=== PATIENT | female | born 1940 | race Caucasian/White ===

== ENCOUNTER 2021-05-26 09:44 | Observation (INO) | payer MEDICARE ==
[2021-05-26 10:59] LABS: #Lymphocytes 0.6 thou/uL (1.20-3.40); #Monocytes 0.4 thou/uL (0.11-0.59); #Neutrophils 3.5 thou/uL (1.40-6.50); %Basophils 0.6 % (0.0-1.0); %Lymphocytes 13.3 % (21.0-51.0); %Monocytes 8.8 % (0.0-10.0); %Neutrophils 77.3 % (42.0-75.0); Hemoglobin 13.3 g/dL (12.0-16.0); Mean Corpuscular HGB CONC 32.4 g/dL (32.0-36.0); Mean Corpuscular Hemoglobin 28.4 pg (27.0-31.0); Mean Corpuscular Volume 87.8 fL (78.0-98.0); Platelet Count 175 thou/uL (130-400); RBC Distribution Width 14.3 % (11.5-14.5); Red Blood Cell (RBC) Count 4.68 mill/uL (4.20-5.40); White Blood Cell (WBC) Count 4.5 thou/uL (4.8-10.8)
[2021-05-26 11:10] LABS: ALT (SGPT) 25 U/L (8-55); AST (SGOT) 31 U/L (5-34); Albumin 3.5 g/dL (3.4-4.8); Alkaline Phosphatase 58 U/L (40-110); Anion Gap 13 mmol/L (10-20); BUN (Urea Nitrogen) 15 mg/dL (9.8-20.1); Bilirubin, Total 0.3 mg/dL (0.2-1.2); Calc. Creatinine Clearance 0 mL/min (70-130); Calcium 7.9 mg/dL (7.8-10.44); Carbon Dioxide 24 mmol/L (23-31); Chloride 103 mmol/L (98-107); Globulin 2.9 g/dL (2.4-3.5); Glucose 119 mg/dL (83-110); Potassium 3.9 mmol/L (3.5-5.1); Protein, Total 6.4 g/dL (5.8-8.1); Sodium 136 mmol/L (136-145)
[2021-05-26] MEDS ORDERED: cefTRIAXone\\ROCEPHIN 2 GM VIAL ONE (11:17)
[2021-05-26] MEDS ORDERED: Aspirin 325 MG TAB ONE (11:17)
[2021-05-26] MEDS ORDERED: Sodium Chloride 0.9% 100 ML ONE (11:18)
[2021-05-26] MEDS ORDERED: Azithromycin 500 MG VIAL ONE (12:09)
[2021-05-26 12:30] LABS: SARS-CoV-2 NAA Rapid Test DETECTED (NotDetected)
[2021-05-26] MEDS ORDERED: Dexamethasone 10 MG/ML VIAL ONE (14:34)
[2021-05-26] MEDS ORDERED: Albuterol 200 PUFF (6.7GM INHALER) INH PRN (15:24)
[2021-05-26] MEDS ORDERED: Ondansetron ODT 4 MG TAB SL PRN (15:30)
[2021-05-26] MEDS ORDERED: Acetaminophen 325 MG TAB PO PRN (15:30)
[2021-05-26] MEDS ORDERED: Ondansetron PF 4 MG/2 ML Vial IVP PRN (15:30)
[2021-05-26 16:14] VITALS: BMI 33.3
[2021-05-27 05:29] LABS: ALT (SGPT) 25 U/L (8-55); AST (SGOT) 32 U/L (5-34); Albumin 3.4 g/dL (3.4-4.8); Alkaline Phosphatase 53 U/L (40-110); Anion Gap 13 mmol/L (10-20); BUN (Urea Nitrogen) 15 mg/dL (9.8-20.1); Bilirubin, Total 0.3 mg/dL (0.2-1.2); Calc. Creatinine Clearance 115 mL/min (70-130); Carbon Dioxide 25 mmol/L (23-31); Chloride 105 mmol/L (98-107); Globulin 2.9 g/dL (2.4-3.5); Glucose 118 mg/dL (83-110); Potassium 4.3 mmol/L (3.5-5.1); Protein, Total 6.3 g/dL (5.8-8.1); Sodium 139 mmol/L (136-145)
[2021-05-27 06:01] LABS: #Lymphocytes 0.8 thou/uL (1.20-3.40); #Monocytes 0.3 thou/uL (0.11-0.59); #Neutrophils 1.6 thou/uL (1.40-6.50); %Basophils 0.5 % (0.0-1.0); %Lymphocytes 28.8 % (21.0-51.0); %Monocytes 12.2 % (0.0-10.0); %Neutrophils 58.5 % (42.0-75.0); Hemoglobin 13.1 g/dL (12.0-16.0); Mean Corpuscular HGB CONC 30.7 g/dL (32.0-36.0); Mean Corpuscular Hemoglobin 27.4 pg (27.0-31.0); Mean Corpuscular Volume 89.3 fL (78.0-98.0); Platelet Count 170 thou/uL (130-400); RBC Distribution Width 14.6 % (11.5-14.5); Red Blood Cell (RBC) Count 4.77 mill/uL (4.20-5.40); White Blood Cell (WBC) Count 2.6 thou/uL (4.8-10.8)
[2021-05-27] MEDS: Enoxaparin Sodium 40 MG/0.4 ML SYRINGE SC SCH (09:36)
[2021-05-27 16:44] VITALS: BP 135/63; TEMP 99.5
== END 2021-05-27 14:45 | disposition home or self-care (01) ==
LOC: BURERS 09:44 → BURMED 11:55 → UNDOADMOB 13:10 → BURMED 13:10
PROVIDERS: ADMIT Family Medicine; ATTEND Family Medicine
DX: U07.1 COVID-19 (principal); J12.82 Pneumonia due to coronavirus disease 2019; Z90.49 Acquired absence of other specified parts of digestive tract
CPT/HCPCS: 0240U; 36415; 71045; 80053; 83605; 83880; 84484; 85025; 87040; 93005; 96365; 96366; 96367; 96372; 96375; G0378; J0456; J0696; J1100; J1650; J3490